=== PATIENT | female | born 1970 | race Caucasian/White ===

== ENCOUNTER 2017-05-12 11:33 | Emergency (ER) | payer MEDICAID ==
[2017-05-12] MEDS ORDERED: RABIES VACC, HUMAN DIPLOID/PF 2.5 UNIT VIAL (RABAVERT) IM ONE (12:57)
[2017-05-12] MEDS ORDERED: AMOXICILLIN/CLAVULANATE POT 875/125 MG TAB PO ONE (12:57)
[2017-05-12] MEDS ORDERED: RABIES IMMUNE GLOBULIN 300 UNIT/2 ML VIAL IM ONE (12:57)
[2017-05-12] MEDS ORDERED: TDAP ADULT 0.5 ML INJ (BOOSTRIX) IM ONE (12:57)
[2017-05-12] MEDS ORDERED: HYDROCODONE/APAP 5/325 TAB PO ONE (13:10)
--- NOTE | 2017-05-12 13:42 | EDPHY ---
H & P Stated Complaint: raccoon bite HPI/ROS: CHIEF COMPLAINT: Raccoon bite left thigh HISTORY OF PRESENT ILLNESS: Patient was attempting to break up a fight between dog and raccoon last night when she was bit on the left thigh. She was bit on the left thigh last night and proceeded to irrigate the wound and sharp. No injuries elsewhere. Moderate pain to the area. It has stayed steady overnight. There is some surrounding redness. No difficulty using the leg. No numbness or tingling distally. She is not certain when her last tetanus shot was. She was not bitten by the dog. No other associated complaints or modifying factors. REVIEW OF SYSTEMS: Ten systems reviewed and are negative unless otherwise noted in the HPI PAST MEDICAL HISTORY: Denies any significant medical history SOCIAL HISTORY: Smoker. Lives in [place] FAMILY HISTORY: Noncontributory EXAMINATION General Appearance: Alert, no distress Head: normocephalic, atraumatic Eyes: Pupils equal and round, no conjunctival pallor or injection ENT, Mouth: Mucous membranes moist Cardiovascular: Regular rate. Pulses intact distally Neurological: A&O, nonfocal, normal gait Skin: Warm and dry, no rash. There is puncture wound to the left lateral thigh consistent with animal bite. There is minimal surrounding erythema. There is no purulence. No fluctuance. Neurovascular intact distal to the injury. Extremities: Mild tenderness over the left puncture wound. There is full range of motion of the lower extremity on the left consistent with the right. Psychiatric: Mood and affect normal DIFFERENTIAL DIAGNOSES: Including but not limited to raccoon bite, animal bite, possible rabies exposure MDM: 1:05 p.m. Raccoon bite to the left thigh last night. Tetanus is uncertain, thus we will update here. I have ordered the 1st dose of the rabies post exposure prophylaxis. I have anesthetize the area for copious irrigation. I will contacted Infectious Disease to arrange for outpatient follow-up for days 3, 7 and 14. Antibiotic treatment commenced in the ER as well. 1:18 p.m. I discussed the case with Infectious Disease physician Dr. aDmon. He agrees with our treatment thus far including the tetanus update, rabies post exposure prophylaxis and choice of Augmentin. He will help the office contact the patient to assure that she has appointments on days 3, 7 and 14. He would like the patient to contact the office as well. She will be discharged home on continued Augmentin, pain medication and instructions to follow up at the [facility] for the remainder of the post exposure prophylaxis injections. She is discharged home stable condition. SUPERVISION: This patient was independently evaluated without direct examination by the attending physician. Case was discussed with attending physician. Source: Patient, Family Exam Limitations: No limitations - Personal History LMP (Females 10-55): 22-28 Days Ago Current Tetanus Diphtheria and Acellular Pertussis (TDAP): No - Medical/Surgical History Hx Asthma: No Hx Chronic Respiratory Disease: No Hx Diabetes: No Hx Cardiac Disease: No Hx Renal Disease: No Hx Cirrhosis: No Hx Alcoholism: No Hx HIV/AIDS: No Hx Splenectomy or Spleen Trauma: No - Social History Smoking Status: Current every day smoker Constitutional: Initial Vital Signs Temperature (C) 98.1 F 05/12/17 11:41 Heart Rate 64 05/12/17 11:41 Respiratory Rate 16 05/12/17 11:41 Blood Pressure 124/74 H 05/12/17 11:41 O2 Sat (%) 99 05/12/17 11:41 O2 Delivery Mode Room Air Allergies/Adverse Reactions: No Known Allergies Allergy (Unverified 09/08/16 11:26) Home Medications: Medication Instructions Recorded Amoxicillin/Clavulanate Pot 875 mg PO BID #20 tab 05/12/17 [Augmentin 875 MG TAB (*)] Hydrocodone/Acetaminophen [Tippo 1 each PO Q4-6PRN PRN #20 tablet 05/12/17 7.5-325 Tablet] Medical Decision Making - Data Points Medications Given: Discontinued Medications Hydrocodone Bitart/Acetaminophen (Tippo 5/325) 1 tab PO EDNOW ONE Stop: 05/12/17 13:11 Last Admin: 05/12/17 13:16 Dose: 1 tab Amoxicillin/Clavulanate Potassium (Augmentin 875mg) 875 mg PO EDNOW ONE PRN Reason: Protocol Stop: 05/12/17 12:58 Last Admin: 05/12/17 13:16 Dose: 875 mg Diphtheria/Tetanus/Acell Pertussis (Boostrix) 0.5 ml IM .ONCE ONE Stop: 05/12/17 12:58 Last Admin: 05/12/17 13:26 Dose: 0.5 ml Rabies Immune Globulin (Imogam Rabies Ht 2ml) 1,043 unit IM .ONCE ONE Stop: 05/12/17 12:58 Last Admin: 05/12/17 13:27 Dose: 1,043 unit Rabies Vaccine Human Diploid Cell (Rabavert) 2.5 unit IM .ONCE ONE Stop: 05/12/17 12:58 Last Admin: 05/12/17 13:25 Dose: 2.5 unit Departure - Departure Disposition: Home, Routine, Self-Care Clinical Impression: Raccoon bite Qualifiers: Encounter type: initial encounter Qualified Code(s): W55.51XA - Bitten by raccoon, initial encounter Condition: Good Instructions: Rabies Vaccine (By injection), Rabies Immune Globulin (By injection), Animal Bite (ED), Rabies (ED) Additional Instructions: 1. Wound care as discussed daily 2. Follow up with the [facility] for remainder of your post exposure prophylactic doses 3. Return to ER for worsening pain, redness, fever chills, purulent Referrals: Judah Andujar MD [Primary Care Provider] - As per Instructions [facility] (ED,. [Edm Groups for Call Sched] - As per Instructions Prescriptions: Amoxicillin/Clavulanate Pot [Augmentin 875 MG TAB (*)] 875 mg PO BID #20 tab Hydrocodone/Acetaminophen [Tippo 7.5-325 Tablet] 1 each PO Q4-6PRN PRN #20 tablet PRN Reason: Pain, Moderate
[2017-05-12 14:19] VITALS: BP 118/78; PULSE 60; RESP 20; TEMP 97.9; O2SAT 98
== END 2017-05-12 14:19 | disposition home or self-care (01) ==
DX: S71.152A Open bite, left thigh, initial encounter (principal); F17.200 Nicotine dependence, unspecified, uncomplicated; Z23 Encounter for immunization; W55.51XA Bitten by raccoon, initial encounter